=== PATIENT | male | born 1985 | race Asian ===

== ENCOUNTER 2022-05-01 17:49 | Inpatient (IN) | payer MEDICAID ==
[~2022-05-01] VITALS: Ht 167.6 cm; Wt 62.5 kg
[2022-05-01] VITALS (12 sets, daily range): BP systolic 99–127; BP diastolic 48–86
[2022-05-01] MEDS ORDERED: PRE1T PO (21:13)
[2022-05-01] MEDS ORDERED: ALBUAER3 IN (21:13)
[2022-05-01] MEDS ORDERED: NITROGLYCERIN 0.4 MG SL TAB SL PRN (21:45)
[2022-05-01] MEDS ORDERED: ACETAMINOPHEN 325 MG TAB PO PRN (21:45)
[2022-05-01] MEDS ORDERED: DOCUSATE SOD 100 MG CAP PO PRN (21:45)
[2022-05-01] MEDS ORDERED: ONDANSETRON HCL 4 MG/2 ML VIAL IV PRN (21:45)
[2022-05-01] MEDS ORDERED: MORPHINE SULFATE INJ 2 MG/ml SYRG IV PRN (21:45)
[2022-05-01] MEDS ORDERED: HYDROcodone-ACET 5/325MG TAB PO PRN (21:45)
[2022-05-01] MEDS: FAMOTIDINE (10MG/ML) 2ML VL IV SCH (22:00)
[2022-05-01] MEDS: SODIUM CHLOR 0.9% PF (SALINE LOCK) 10ML VIAL/SYR IV SCH (22:00)
[2022-05-01] MEDS: methylPREDNISolone SOD SUCC 40 MG/ML VL IV SCH (22:00)
[2022-05-01 22:24] LABS: Basophils # (auto) 0.1 10 ^3/uL (0-0.2); Basophils % (auto) 0.6 % (0.0-2.0); Eosinophils # (auto) 0 10 ^3/uL (0-0.8); Eosinophils % (auto) 0.2 % (0.0-7.0); Hematocrit 44.7 % (41.0-53.0); Hemoglobin 15.4 g/dL (13.5-17.5); Lymphocytes # (auto) 0.8 10 ^3/uL (0.4-5.4); Lymphocytes % (auto) 8.8 % (10.0-50.0); Mean Corpuscular Hemoglobin 27.8 pg (28.0-32.0); Mean Corpuscular Hgb Conc. 34.5 g/dL (32.0-36.0); Mean Corpuscular Volume 80.6 fL (80.0-100.0); Monocytes # (auto) 0.1 10 ^3/uL (0-1.3); Neutrophils # (auto) 8.3 10 ^3/uL (1.6-8.6); Neutrophils % (auto) 89.4 % (37.0-80.0); Nucleated Red Blood Cells % 0.1 %; Red Blood Cells 5.54 10^6/uL (4.5-5.90); Red Cell Distribution Width 13.6 % (11.8-14.3); White Blood Cell 9.3 10^3/uL (4.4-10.8)
[2022-05-01] MEDS ORDERED: ALBUTEROL MEDNEB 2.5 mg/3ml NEB ONE (22:24)
[2022-05-01] MEDS: ALBUTEROL SULF 2.5 MG/0.5ML(0.5%) NEB SOLN NEB SCH (22:35)
[2022-05-01 23:12] LABS: Calcium 8.4 mg/dL (8.5-10.1); Potassium 3.8 mmol/L (3.5-5.1)
[2022-05-01 23:15] LABS: BUN/Creatinine Ratio 10.6; Bilirubin, Total 0.6 mg/dL (0.2-1.0); Total Protein 7.2 g/dL (6.4-8.2)
[2022-05-02] VITALS (40 sets, daily range): BP systolic 88–126; BP diastolic 46–85
[2022-05-02] MEDS ORDERED: ALBUTEROL MEDNEB 2.5 mg/3ml NEB ONE ×4 (02:30→21:33)
[2022-05-02] MEDS: ALBUTEROL SULF 2.5 MG/0.5ML(0.5%) NEB SOLN NEB SCH ×6 (03:01→22:15)
[2022-05-02] MEDS: SODIUM CHLOR 0.9% PF (SALINE LOCK) 10ML VIAL/SYR IV SCH ×3 (05:24→22:28)
[2022-05-02] MEDS: methylPREDNISolone SOD SUCC 40 MG/ML VL IV SCH ×3 (05:24→22:27)
[2022-05-02 05:58] LABS: Basophils # (auto) 0 10 ^3/uL (0-0.2); Basophils % (auto) 0.3 % (0.0-2.0); Eosinophils # (auto) 0 10 ^3/uL (0-0.8); Eosinophils % (auto) 0.2 % (0.0-7.0); Hematocrit 43.9 % (41.0-53.0); Hemoglobin 15.4 g/dL (13.5-17.5); Lymphocytes % (auto) 11.5 % (10.0-50.0); Mean Corpuscular Hemoglobin 28.1 pg (28.0-32.0); Mean Corpuscular Hgb Conc. 35.1 g/dL (32.0-36.0); Monocytes # (auto) 0.3 10 ^3/uL (0-1.3); Monocytes % (auto) 3.1 % (0.0-12.0); Neutrophils # (auto) 7.1 10 ^3/uL (1.6-8.6); Neutrophils % (auto) 84.9 % (37.0-80.0); Nucleated Red Blood Cells % 0.2 %; Red Blood Cells 5.49 10^6/uL (4.5-5.90); Red Cell Distribution Width 13.5 % (11.8-14.3); White Blood Cell 8.4 10^3/uL (4.4-10.8)
[2022-05-02] MEDS: IPRATROPIUM BROM 0.5 MG/2.5ML INH SOL NEB SCH ×5 (06:15→22:15)
[2022-05-02 06:25] LABS: Potassium 4.1 mmol/L (3.5-5.1)
[2022-05-02 06:32] LABS: Albumin 3.7 g/dL (3.4-5.0); Calcium 8.9 mg/dL (8.5-10.1)
[2022-05-02 06:39] LABS: Bilirubin, Total 0.7 mg/dL (0.2-1.0); Total Protein 7.1 g/dL (6.4-8.2)
[2022-05-02] MEDS: FAMOTIDINE (10MG/ML) 2ML VL IV SCH ×2 (09:43→22:27)
[2022-05-02] MEDS: LORATADINE 10 MG TAB PO SCH (15:06)
[2022-05-02] MEDS: SODIUM CHLORIDE 0.9% 1,000 ML IV SCH (15:06)
[2022-05-02] MEDS ORDERED: LORazepam 2MG/ML-1ML VIAL IV PRN (23:45)
[2022-05-03] MEDS ORDERED: methylPREDNISolone SOD SUCC 40 MG/ML VL IV SCH
[2022-05-03] MEDS ORDERED: ALBUTEROL MEDNEB 2.5 mg/3ml NEB ONE ×6 (01:44→21:49)
[2022-05-03] MEDS: IPRATROPIUM BROM 0.5 MG/2.5ML INH SOL NEB SCH ×6 (01:52→22:20)
[2022-05-03] MEDS: ALBUTEROL SULF 2.5 MG/0.5ML(0.5%) NEB SOLN NEB SCH ×6 (01:52→22:20)
[2022-05-03 05:00] VITALS: BP 121/60
[2022-05-03] MEDS: SODIUM CHLORIDE 0.9% 1,000 ML IV SCH ×3 (05:21→21:28)
[2022-05-03] MEDS: methylPREDNISolone SOD SUCC 40 MG/ML VL IV SCH ×4 (05:21→17:31)
[2022-05-03] MEDS: SODIUM CHLOR 0.9% PF (SALINE LOCK) 10ML VIAL/SYR IV SCH ×3 (05:22→22:00)
[2022-05-03] MEDS: BUDESONIDE (INHALATION) 0.5 MG/2 ML NEB NEB SCH ×2 (06:22→22:20)
[2022-05-03 07:55] LABS: BUN/Creatinine Ratio 24.4; Calcium 8.5 mg/dL (8.5-10.1); Magnesium 2.5 mg/dL (1.6-2.6); Potassium 3.9 mmol/L (3.5-5.1)
[2022-05-03 08:57] VITALS: BP 142/70
[2022-05-03] MEDS: ENOXAPARIN SOD 40 MG/0.4 ML SYRINGE SC SCH (09:38)
[2022-05-03] MEDS: FAMOTIDINE (10MG/ML) 2ML VL IV SCH ×2 (09:38→21:27)
[2022-05-03] MEDS: LORATADINE 10 MG TAB PO SCH (09:38)
[2022-05-03] MEDS ORDERED: PANTOPRAZOLE 40 MG/10 ML VIAL INJ IV SCH (10:00)
[2022-05-03 12:27] LABS: Urine Blood Negative /uL (Negative); Urine Specific Gravity 1.013 (1.001-1.035)
[2022-05-03 13:00] VITALS: BP 120/51
[2022-05-03 16:45] VITALS: BP 111/57
[2022-05-03 22:00] VITALS: BP 101/55
[2022-05-04] VITALS (7 sets, daily range): BP systolic 105–135; BP diastolic 60–71
[2022-05-04] MEDS: methylPREDNISolone SOD SUCC 40 MG/ML VL IV SCH ×4 (00:33→22:18)
[2022-05-04] MEDS ORDERED: ALBUTEROL MEDNEB 2.5 mg/3ml NEB ONE ×6 (01:07→22:06)
[2022-05-04] MEDS: ALBUTEROL SULF 2.5 MG/0.5ML(0.5%) NEB SOLN NEB SCH ×6 (01:27→22:12)
[2022-05-04] MEDS: IPRATROPIUM BROM 0.5 MG/2.5ML INH SOL NEB SCH ×6 (01:27→22:12)
[2022-05-04] MEDS: SODIUM CHLORIDE 0.9% 1,000 ML IV SCH ×2 (06:00→11:34)
[2022-05-04] MEDS: SODIUM CHLOR 0.9% PF (SALINE LOCK) 10ML VIAL/SYR IV SCH ×3 (06:12→22:19)
[2022-05-04 06:24] LABS: Basophils # (auto) 0 10 ^3/uL (0-0.2); Eosinophils # (auto) 0 10 ^3/uL (0-0.8); Hemoglobin 14.5 g/dL (13.5-17.5); Lymphocytes # (auto) 1.1 10 ^3/uL (0.4-5.4); Lymphocytes % (auto) 6.7 % (10.0-50.0); Mean Corpuscular Hemoglobin 27.7 pg (28.0-32.0); Mean Corpuscular Hgb Conc. 34.5 g/dL (32.0-36.0); Mean Corpuscular Volume 80.2 fL (80.0-100.0); Monocytes # (auto) 0.7 10 ^3/uL (0-1.3); Monocytes % (auto) 4.3 % (0.0-12.0); Neutrophils # (auto) 14.1 10 ^3/uL (1.6-8.6); Nucleated Red Blood Cells % 0.1 %; Red Blood Cells 5.24 10^6/uL (4.5-5.90); Red Cell Distribution Width 13.6 % (11.8-14.3); White Blood Cell 15.9 10^3/uL (4.4-10.8)
[2022-05-04 06:38] LABS: Potassium 4.4 mmol/L (3.5-5.1)
[2022-05-04 06:49] LABS: Albumin 3.5 g/dL (3.4-5.0); BUN/Creatinine Ratio 28.4; Bilirubin, Total 0.6 mg/dL (0.2-1.0); Calcium 8.7 mg/dL (8.5-10.1); Total Protein 6.4 g/dL (6.4-8.2)
[2022-05-04] MEDS: LORATADINE 10 MG TAB PO SCH (08:41)
[2022-05-04] MEDS: ENOXAPARIN SOD 40 MG/0.4 ML SYRINGE SC SCH (08:42)
[2022-05-04] MEDS: FAMOTIDINE (10MG/ML) 2ML VL IV SCH ×2 (08:42→22:18)
[2022-05-04] MEDS: BUDESONIDE (INHALATION) 0.5 MG/2 ML NEB NEB SCH ×2 (10:03→22:14)
[2022-05-04] MEDS ORDERED: AZITHROMYCIN 250 MG TAB PO ONE (15:45)
[2022-05-04] MEDS ORDERED: FUROSEMIDE 20 MG/2 ML VIAL IV ONE (15:45)
[2022-05-05] MEDS ORDERED: ALBUTEROL MEDNEB 2.5 mg/3ml NEB ONE ×6 (02:03→22:17)
[2022-05-05] MEDS: ALBUTEROL SULF 2.5 MG/0.5ML(0.5%) NEB SOLN NEB SCH ×6 (02:06→22:18)
[2022-05-05] MEDS: IPRATROPIUM BROM 0.5 MG/2.5ML INH SOL NEB SCH ×6 (02:06→22:18)
[2022-05-05 05:00] VITALS: BP 103/65
[2022-05-05] MEDS: SODIUM CHLOR 0.9% PF (SALINE LOCK) 10ML VIAL/SYR IV SCH ×3 (05:34→21:34)
[2022-05-05] MEDS: methylPREDNISolone SOD SUCC 40 MG/ML VL IV SCH ×3 (05:34→21:34)
[2022-05-05 06:26] LABS: Basophils # (auto) 0 10 ^3/uL (0-0.2); Eosinophils # (auto) 0 10 ^3/uL (0-0.8); Hemoglobin 15.2 g/dL (13.5-17.5); Lymphocytes # (auto) 1.2 10 ^3/uL (0.4-5.4); Lymphocytes % (auto) 10.4 % (10.0-50.0); Mean Corpuscular Hemoglobin 27.8 pg (28.0-32.0); Mean Corpuscular Hgb Conc. 34.6 g/dL (32.0-36.0); Mean Corpuscular Volume 80.4 fL (80.0-100.0); Monocytes # (auto) 0.5 10 ^3/uL (0-1.3); Monocytes % (auto) 4.9 % (0.0-12.0); Neutrophils # (auto) 9.4 10 ^3/uL (1.6-8.6); Neutrophils % (auto) 84.7 % (37.0-80.0); Nucleated Red Blood Cells % 0.3 %; Red Blood Cells 5.48 10^6/uL (4.5-5.90); Red Cell Distribution Width 13.1 % (11.8-14.3); White Blood Cell 11.1 10^3/uL (4.4-10.8)
[2022-05-05 06:41] LABS: Albumin 3.5 g/dL (3.4-5.0); BUN/Creatinine Ratio 32.4; Bilirubin, Total 0.5 mg/dL (0.2-1.0); Calcium 9.1 mg/dL (8.5-10.1); Total Protein 6.8 g/dL (6.4-8.2)
[2022-05-05] MEDS: BUDESONIDE (INHALATION) 0.5 MG/2 ML NEB NEB SCH ×2 (08:01→22:18)
[2022-05-05] MEDS: AZITHROMYCIN 250 MG TAB PO SCH (08:25)
[2022-05-05] MEDS: FAMOTIDINE (10MG/ML) 2ML VL IV SCH ×2 (08:25→21:34)
[2022-05-05] MEDS: LORATADINE 10 MG TAB PO SCH (08:25)
[2022-05-05] MEDS: ENOXAPARIN SOD 40 MG/0.4 ML SYRINGE SC SCH (08:25)
[2022-05-05 09:00] VITALS: BP 127/69
[2022-05-05] MEDS ORDERED: ERGOCALCIFEROL 50,000 UNIT(1.25MG) CAP PO SCH ×2 (10:15→17:15)
[2022-05-05 13:00] VITALS: BP 108/60
[2022-05-05 17:00] VITALS: BP 114/78
[2022-05-05 19:41] LABS: Free T4 (Free Thyroxine) 1.35 ng/dL (0.89-1.76)
[2022-05-05 19:42] LABS: T3 Total 0.62 ng/mL (0.60-1.81)
[2022-05-05 22:00] VITALS: BP 115/73
[2022-05-06] MEDS: IPRATROPIUM BROM 0.5 MG/2.5ML INH SOL NEB SCH ×4 (02:45→14:30)
[2022-05-06] MEDS: ALBUTEROL SULF 2.5 MG/0.5ML(0.5%) NEB SOLN NEB SCH ×4 (02:45→14:30)
[2022-05-06] MEDS ORDERED: ALBUTEROL MEDNEB 2.5 mg/3ml NEB ONE ×4 (02:45→13:12)
[2022-05-06 05:00] VITALS: BP 111/58
[2022-05-06] MEDS: SODIUM CHLOR 0.9% PF (SALINE LOCK) 10ML VIAL/SYR IV SCH ×2 (06:00→13:30)
[2022-05-06 09:00] VITALS: BP 113/70
[2022-05-06] MEDS ORDERED: ALBUAER3 IN (10:08)
[2022-05-06] MEDS ORDERED: AZIT250T9 PO (10:08)
[2022-05-06] MEDS ORDERED: ERGO1CAP23 PO (10:08)
[2022-05-06] MEDS ORDERED: PRED20TA2 PO (10:08)
[2022-05-06] MEDS: BUDESONIDE (INHALATION) 0.5 MG/2 ML NEB NEB SCH (10:49)
[2022-05-06] MEDS: AZITHROMYCIN 250 MG TAB PO SCH (12:21)
[2022-05-06] MEDS: ENOXAPARIN SOD 40 MG/0.4 ML SYRINGE SC SCH (12:21)
[2022-05-06] MEDS: methylPREDNISolone SOD SUCC 40 MG/ML VL IV SCH (12:21)
[2022-05-06] MEDS: FAMOTIDINE (10MG/ML) 2ML VL IV SCH (12:21)
[2022-05-06] MEDS: LORATADINE 10 MG TAB PO SCH (12:22)
[2022-05-06 14:13] VITALS: BP 118/71
== END 2022-05-06 14:30 | disposition home or self-care (01) | DRG 133 ==
LOC: DOU IN ICU 19:20 → UNDOADMIN 19:20 → DOU IN ICU 21:53 → TELE-WESTW 05-02 19:25 → WEST WING 05-05 16:20
PROVIDERS: ADMIT Nurse Practitioner Family; ATTEND Internal Medicine
DX: J96.01 Acute respiratory failure with hypoxia (principal); J45.901 Unspecified asthma with (acute) exacerbation; D72.829 Elevated white blood cell count, unspecified; Z20.822 Contact with and (suspected) exposure to COVID-19
CPT/HCPCS: 36415; 71045; 71250; 80048; 80053; 80061; 81003; 82306; 83036; 83735; 84439; 84443; 84480; 85025; 87081; 87426; 94640; G0378; J3490